=== PATIENT | male | born 2000 | race Caucasian/White ===

== ENCOUNTER 2020-02-22 09:41 | Day surgery (SDC) | payer OTHER ==
[2020-02-22] MEDS ORDERED: Fentanyl 100 MCG/2 ML VIAL ONE (11:54)
[2020-02-22] MEDS ORDERED: Lidocaine 1% PF 5 ML VIAL ONE (13:44)
[2020-02-22] MEDS ORDERED: PROPOFOL 200 MG/20 ML VIAL ONE (13:44)
[2020-02-22] MEDS ORDERED: Succinylcholine Chloride 20 MG/ML 10 ml SYRINGE FS ONE (13:44)
--- NOTE | 2020-02-22 19:34 | OP ---
DATE OF PROCEDURE: 02/22/2020 PROCEDURES: Esophagogastroduodenoscopy with biopsy of esophagus and removal of foreign body obstruction of the esophagus. ANESTHESIA: General endotracheal anesthesia. POSTPROCEDURE DIAGNOSES: 1. Foreign body obstruction with meat bolus in the distal esophagus right at the GE junction. 2. Small erosion ulceration from pressure necrosis from the meat bolus. For this reason, we did not dilate the esophagus. 3. Frozen circumferential circular rings in the mid esophagus consistent with eosinophilic esophagitis, biopsied. RECOMMENDATIONS: 1. Liquid diet for 24 hours and advance to soft diet. 2. Prilosec 40 mg p.o. daily. 3. Follow up in the office in 2 weeks to go over biopsy as discussed, esophageal elective esophageal dilatation. PROCEDURE IN DETAIL: After the patient was informed of the risks, benefits, and possible complications of endoscopy including perforation, reaction to medication, aspiration, informed consent was obtained. The patient was brought to endoscopy suite, where he was sedated in gradual fashion. Once he was comfortable, A bite block was placed in the incisural orifice. The endoscope was advanced through the esophagus, stomach, into the second and third portions of the duodenum and slowly removed. On entering the esophagus, this is after the patient was intubated, there was liquid and food. This was all suctioned away. There was a bolus obstruction of meat in the distal esophagus that we could not pass. It was removed with a [employer] retrieval net. The esophagus was evaluated and there seemed to be linear folds and circumferential rings in the mid esophagus consistent with eosinophilic esophagitis. This area was biopsied. The GE junction is where the bolus obstruction was and there was ulceration and erosion and a small pressure necrotic ulcer with no evidence of perforation, but it was not felt to be safe to dilate this area. Retroflexed views confirmed the narrowing of the GE junction. There was no evidence of masses or tumors, but there was inflammation and ulceration at the GE junction. The stomach was otherwise normal as was the duodenum. The scope was removed. The patient tolerated the procedure well and there were no complications. Job ID: [id number]
--- NOTE | 2020-02-22 19:41 | CON ---
DATE OF CONSULTATION: 02/22/2020 REQUESTING PHYSICIAN: Geraldo Vines DO REASON FOR CONSULTATION: Suspected bolus obstruction of the esophagus. HISTORY OF PRESENT ILLNESS: Mr. Mota is a 19-year-old gentleman who has had recurrent issues with dysphagia and intermittent bolus obstruction, which he was also been able to clear at home for several years. He notes that he was eating steak last night about 9 p.m. and it got stuck. He was not able to handle secretions. He tried to regurgitate it several times. He has been unable to drink liquids or handle secretions since then and ultimately came to the emergency room today at about 10. He has never had an endoscopy and never has had to have the foreign body removed. He just vomits up every liquid he has been trying since last night. He denies history of reflux. He denies severe chest pain or shortness of breath or cough right now. Denies any throat pain. PAST MEDICAL HISTORY: Seasonal aeroallergens. PAST SURGICAL HISTORY: Left wrist repair. SOCIAL HISTORY: Drinks alcohol fairly regularly 2-3 times per week. He uses snuff. He does not smoke. He does not use drugs. ALLERGIES: HE HAS NO ALLERGIES. MEDICATIONS: He tried IV fluids and glucagon in the ER without response. PHYSICAL EXAMINATION: VITAL SIGNS: Blood pressure 166/97, pulse 63, respirations 18, temperature 99. LUNGS: Clear. HEART: Regular rate and rhythm without clicks or murmurs. ABDOMEN: Soft and nontender without rebound or guarding. EXTREMITIES: No clubbing, cyanosis, or edema. LABORATORY DATA: None. ASSESSMENT: 1. Long history of dysphagia for solids such as meats, chicken and bread with a history of seasonal allergies and no history of reflux. This is likely eosinophilic esophagitis with stricture. 2. Foreign body of the esophagus with obstruction by symptoms. RECOMMENDATIONS: EGD with foreign body removal, possible biopsy. With the long-term time of obstruction, I probably will not perform a dilation at this time and informed the patient and his mother he would probably need to do this at a later time. Job ID: [id number]
== END 2020-02-22 13:30 | disposition home or self-care (01) ==
LOC: ERS 09:41 → SDC 12:01
PROVIDERS: ATTEND Internal Medicine Gastroenterology
PROC: 0DC48ZZ Extirpation of Matter from Esophagogastric Junction, Via Natural or Artificial Opening Endoscopic (ICD-10-PCS; principal; 2020-02-22)
PROC: 0DB28ZX Excision of Middle Esophagus, Via Natural or Artificial Opening Endoscopic, Diagnostic (ICD-10-PCS; principal; 2020-02-22)
DX: T18.128A Food in esophagus causing other injury, initial encounter (principal); K20.0 Eosinophilic esophagitis; K22.10 Ulcer of esophagus without bleeding; F17.220 Nicotine dependence, chewing tobacco, uncomplicated; X58.XXXA Exposure to other specified factors, initial encounter
CPT/HCPCS: 88305; 88312; 88313; J1610; J2001; J2704; J3010